=== PATIENT | male | born 1980 | race Two or more races ===

== ENCOUNTER 2025-01-08 07:05 | Day surgery (SDC) | payer BC, SELFPAY ==
[2025-01-05 12:21] VITALS: BMI 40.7
[2025-01-08] VITALS (9 sets, daily range): BP systolic 137–168; BP diastolic 87–111; PULSE 70–86; RESP 15–19; TEMP 36.2–36.8; O2SAT 94–99; BMI 39.8
[2025-01-08] MEDS: SODIUM CHLORIDE 0.9% 500 ML 500 ML 125 ML IV (08:46)
[2025-01-08] MEDS: MIDAZOLAM INJ 1 MG/ML VIAL 2 ML (ASD USE ONLY) 2 MG IVP (08:47)
[2025-01-08] MEDS: fentaNYL CIT INJ 50 mCg/ML AMP 2ML (ASD USE ONLY) IVP (08:48)
== END 2025-01-08 09:15 | disposition home or self-care (01) ==
PROVIDERS: PCP Registered Nurse; Referring Provider Surgery; Visit Provider Surgery
PROC: 0DBE8ZX Excision of Large Intestine, Via Natural or Artificial Opening Endoscopic, Diagnostic (ICD-10-PCS; CPT 45380; principal; 2025-01-08 08:30)
DX: Z12.11 Encounter for screening for malignant neoplasm of colon (principal); K64.0 First degree hemorrhoids
CPT/HCPCS: 45378; A4649; J1200; J2250; J3010; J7999